=== PATIENT | female | born 1980 | race African-American/Black ===

== ENCOUNTER → 2019-09-20 | Emergency (ER) | payer OTHER ==
[~2019-09-20] VITALS: Ht 154.9 cm; Wt 114.8 kg
[~2019-09-20] MED LIST: APRESOLINE 10MG10 MG; ENALAPRIL MALEA20 MG; LASIX20 MG; LODOSYN25 MG
== END | disposition home or self-care (01) ==
LOC: ER 20:48
DX: S61.226A Laceration with foreign body of right little finger without damage to nail, initial encounter (principal); W25.XXXA Contact with sharp glass, initial encounter; Y93.G1 Activity, food preparation and clean up; Y92.69 Other specified industrial and construction area as the place of occurrence of the external cause; Y99.8 Other external cause status

== ENCOUNTER → 2019-09-28 | Emergency (ER) | payer OTHER ==
[~2019-09-28] VITALS: Ht 154.9 cm; Wt 114.3 kg
== END | disposition home or self-care (01) ==
LOC: ER 20:26
DX: Z48.02 Encounter for removal of sutures (principal)

== ENCOUNTER 2023-01-19 11:46 | Emergency (ER) | payer OTHER ==
[~2023-01-19] VITALS: Ht 152.4 cm; Wt 122.5 kg
[2023-01-19] MEDS ORDERED: STOOL SOFTENER50 MG PO (15:12)
[2023-01-19] MEDS ORDERED: ALBUTEROL0.63 MG/3 IH (15:12)
[2023-01-19] MEDS ORDERED: IRON325 MG PO (15:12)
== END 2023-01-19 15:17 | disposition home or self-care (01) ==
LOC: ER 11:46
DX: J45.909 Unspecified asthma, uncomplicated (principal); I10 Essential (primary) hypertension; D64.9 Anemia, unspecified; Z20.822 Contact with and (suspected) exposure to COVID-19

== ENCOUNTER → 2023-03-09 | Outpatient (CLI) | payer OTHER ==
[~2023-03-09] MED LIST changes: +ALBUTEROL0.63 MG/3 IH; +IRON325 MG PO; +STOOL SOFTENER50 MG PO
== END | disposition home or self-care (01) ==
LOC: SONOGRAMA 10:55
DX: R22.31 Localized swelling, mass and lump, right upper limb (principal)

== ENCOUNTER 2023-07-04 11:51 | Emergency (ER) | payer OTHER ==
[~2023-07-04] VITALS: Ht 154.9 cm; Wt 117.9 kg
== END 2023-07-04 14:07 | disposition home or self-care (01) ==
LOC: ER 11:51
DX: S61.422A Laceration with foreign body of left hand, initial encounter (principal); W45.8XXA Other foreign body or object entering through skin, initial encounter; Y93.E9 Activity, other interior property and clothing maintenance; Y92.89 Other specified places as the place of occurrence of the external cause; I10 Essential (primary) hypertension

== ENCOUNTER → 2024-05-28 09:35 | Outpatient (CLI) | payer OTHER ==
[~2024-05-28 09:35] MED LIST changes: +ALDACTONE25 MG PO
[2024-05-28 11:14] LABS: HEMATOCRIT 33.6 % (36.0-45.00); MEAN CELL VOLUME 73.6 fL (80.00-100.00); MEAN CORPUSCULAR HGB CONC 32.6 g/dl (32.0-36.0); PLATELET COUNT 305 K/uL (150-450); RED BLOOD COUNT 4.56 M/uL (4.00-6.00); RED CELL DISTRIBUTION WIDTH 19.1 % (11.5-14.5)
[2024-05-28 11:46] LABS: ALBUMIN 3.5 gm/dL (3.4-5.0); BILIRUBIN TOTAL 0.27 mg/dL (0.3-1.2); CALCIUM 9.1 mg/dL (8.5-10.1); CHOL HDL RATIO 3.6 (0-5.0); CREATININE SERUM 0.61 mg/dL (0.55-1.02); GFR 106.06; GLOBULINA 3.8 G/DL (2.4-3.5); T4 FREE 1.12 NG/ML (0.76-1.46); TOTAL PROTEIN 7.3 gm/dL (6.4-8.2); TSH 1.02 uIU/mL (0.358-3.74)
== END | disposition home or self-care (01) ==
LOC: LAB 09:35
DX: D64.9 Anemia, unspecified (principal); I10 Essential (primary) hypertension; E78.5 Hyperlipidemia, unspecified; E66.01 Morbid (severe) obesity due to excess calories; Z68.43 Body mass index [BMI] 50.0-59.9, adult; R73.01 Impaired fasting glucose; E03.9 Hypothyroidism, unspecified; Z12.11 Encounter for screening for malignant neoplasm of colon

== ENCOUNTER 2024-05-28 10:41 | Emergency (ER) | payer OTHER ==
[~2024-05-28] VITALS: Ht 154.9 cm; Wt 122.5 kg
[~2024-05-28 10:41] MED LIST changes: -ALDACTONE25 MG PO
[2024-05-28] MEDS ORDERED: ALDACTONE25 MG PO (11:01)
[2024-05-28] MEDS ORDERED: 0.9 % SODIUM CHLORIDE 500 ML IV ONE (14:45)
[2024-05-28] MEDS ORDERED: ACETAMINOPHEN 500 MG GEL..CAP PO ONE (14:45)
[2024-05-28 16:23] LABS: HEMATOCRIT 34.7 % (36.0-45.00); HEMOGLOBIN 11.3 g/dL (12.0-15.00); MEAN CELL VOLUME 73.9 fL (80.00-100.00); MEAN CORPUSCULAR HEMOGLOBIN 24.2 pg (27.00-32.0); MEAN CORPUSCULAR HGB CONC 32.7 g/dl (32.0-36.0); PLATELET COUNT 315 K/uL (150-450); RED BLOOD COUNT 4.69 M/uL (4.00-6.00); RED CELL DISTRIBUTION WIDTH 18.9 % (11.5-14.5)
[2024-05-28 17:09] LABS: URINE APPEARANCE Clear; URINE BILIRRUBIN Negative (NEGATIVE); URINE BLOOD Moderate; URINE COLOR Yellow; URINE GLUCOSE Negative (NEGATIVE); URINE KETONE Negative (NEGATIVE); URINE LEUKOCYTE Negative; URINE NITRATE Negative; URINE PROTEIN Negative (NEGATIVE)
[2024-05-28 17:09] LABS: ALBUMIN 3.6 gm/dL (3.4-5.0); BILIRUBIN TOTAL 0.27 mg/dL (0.3-1.2); CALCIUM 9.2 mg/dL (8.5-10.1); CREATININE SERUM 0.62 mg/dL (0.55-1.02); GFR 104.09; GLOBULINA 4.3 G/DL (2.4-3.5); POTASSIUM 4.45 mEq/L (3.5-5.1); TOTAL PROTEIN 7.9 gm/dL (6.4-8.2)
[2024-05-28 17:12] LABS: URINE BACTERIA 127.1 uL (0.0-1933); URINE EPITHELIAL CELLS 29.8 uL (0.0-38.8); URINE RBC 3.5 uL (0.0-20.8); URINE WBC 2.6 uL (0.0-23.2)
== END 2024-05-28 22:35 ==
LOC: ER 10:42
PROVIDERS: Nurse Practitioner Family
DX: R10.84 Generalized abdominal pain (principal)

== ENCOUNTER 2024-07-17 04:53 | Day surgery (SDC) | payer OTHER ==
[2024-07-15 10:51] VITALS: BP 129/83
[2024-07-15 11:06] LABS: HEMATOCRIT 34.8 % (36.0-45.00); HEMOGLOBIN 11.3 g/dL (12.0-15.00); MEAN CELL VOLUME 74.4 fL (80.00-100.00); MEAN CORPUSCULAR HEMOGLOBIN 24.1 pg (27.00-32.0); MEAN CORPUSCULAR HGB CONC 32.4 g/dl (32.0-36.0); PLATELET COUNT 344 K/uL (150-450); RED BLOOD COUNT 4.68 M/uL (4.00-6.00); RED CELL DISTRIBUTION WIDTH 18.5 % (11.5-14.5)
[2024-07-15 11:22] LABS: PARTIAL THROMBOPLASTIN TIME 25.3 SECONDS (22.0-34.0); PROTHROMBIN TIME 10.9 SECONDS (9.0-11.5)
[2024-07-15 11:31] LABS: ALBUMIN 3.6 gm/dL (3.4-5.0); BILIRUBIN TOTAL 0.27 mg/dL (0.3-1.2); CALCIUM 9.4 mg/dL (8.5-10.1); CREATININE SERUM 0.62 mg/dL (0.55-1.02); GFR 104.09; GLOBULINA 4.1 G/DL (2.4-3.5); POTASSIUM 4.87 mEq/L (3.5-5.1); TOTAL PROTEIN 7.7 gm/dL (6.4-8.2)
[~2024-07-17] VITALS: Ht 154.9 cm; Wt 121.6 kg
[~2024-07-17 04:53] MED LIST changes: +ALDACTONE25 MG; +ALDACTONE25 MG PO; +CARVEDILOL25 M1 PO; +SIMVASTATIN80 MG; +VASOTEC20 M1 PO
[2024-07-17] MEDS ORDERED: POVIDONE-IODINE 118 ML BOTT TOP ONE (08:30)
== END 2024-07-17 12:50 | disposition home or self-care (01) ==
LOC: CIR.AMB 04:53
PROVIDERS: ATTEND Obstetrics & Gynecology Maternal & Fetal Medicine
DX: N84.0 Polyp of corpus uteri (principal)

== ENCOUNTER 2024-12-26 10:31 | Outpatient (CLI) | payer OTHER ==
[2024-12-26 11:27] LABS: PH,URINE 5.5 (5.0-8.0); URINE APPEARANCE Clear; URINE BILIRRUBIN Negative (NEGATIVE); URINE BLOOD Negative; URINE COLOR Yellow; URINE GLUCOSE Negative (NEGATIVE); URINE KETONE Negative (NEGATIVE); URINE LEUKOCYTE Negative; URINE NITRATE Negative; URINE PROTEIN Negative (NEGATIVE); URINE UROBILINOGEN 0.2 E.U./dl
[2024-12-26 11:29] LABS: URINE BACTERIA 141.9 uL (0.0-1933); URINE EPITHELIAL CELLS 8.3 uL (0.0-38.8)
[2024-12-26 11:36] LABS: URINE RBC 1.7 uL (0.0-20.8); URINE WBC 1.7 uL (0.0-23.2)
[2024-12-26 11:38] LABS: HEMATOCRIT 30.1 % (36.0-45.00); HEMOGLOBIN 9.8 g/dL (12.0-15.00); MEAN CELL VOLUME 70.7 fL (80.00-100.00); MEAN CORPUSCULAR HEMOGLOBIN 23.1 pg (27.00-32.0); MEAN CORPUSCULAR HGB CONC 32.6 g/dl (32.0-36.0); PLATELET COUNT 327 K/uL (150-450); RED BLOOD COUNT 4.26 M/uL (4.00-6.00); RED CELL DISTRIBUTION WIDTH 20.1 % (11.5-14.5)
[2024-12-26 12:32] LABS: ALBUMIN 3.4 gm/dL (3.4-5.0); BILIRUBIN TOTAL 0.23 mg/dL (0.3-1.2); CALCIUM 8.8 mg/dL (8.5-10.1); CHOL HDL RATIO 3.7 (0-5.0); CREATININE SERUM 0.48 mg/dL (0.55-1.02); GFR 139.86; GLOBULINA 3.5 G/DL (2.4-3.5); POTASSIUM 4.52 mEq/L (3.5-5.1); TOTAL PROTEIN 6.9 gm/dL (6.4-8.2); TSH 1.17 uIU/mL (0.358-3.74)
== END 2024-12-26 11:09 | disposition home or self-care (01) ==
LOC: LAB 10:31
PROVIDERS: ATTEND Internal Medicine Gastroenterology
DX: R10.13 Epigastric pain (principal); R79.89 Other specified abnormal findings of blood chemistry; R78.9 Finding of unspecified substance, not normally found in blood; Z12.11 Encounter for screening for malignant neoplasm of colon

== ENCOUNTER 2024-12-27 08:51 | Outpatient (CLI) | payer OTHER ==
[2024-12-27 11:03] LABS: ob NEGATIVE (NEGATIVE)
== END 2024-12-27 08:53 | disposition home or self-care (01) ==
LOC: LAB 08:51
PROVIDERS: ATTEND Internal Medicine Gastroenterology
DX: R10.13 Epigastric pain (principal); R79.81 Abnormal blood-gas level; E78.9 Disorder of lipoprotein metabolism, unspecified; Z12.11 Encounter for screening for malignant neoplasm of colon

== ENCOUNTER 2025-01-01 08:23 | Outpatient (CLI) | payer OTHER | END 2025-01-01 08:28 | disposition home or self-care (01) | LOC: SONOGRAMA 08:23 | PROVIDERS: ATTEND Internal Medicine Gastroenterology | DX: R10.13 Epigastric pain (principal) ==